=== PATIENT | male | born 1990 | race American Indian/Alaskan Native ===

== ENCOUNTER 2018-02-18 09:50 | Outpatient (CLI) | payer OTHER ==
[2018-02-18 10:31] LABS: Alanine Aminotransferase 47 units/L (7-56); Albumin 4.3 g/dL (3.9-5)
[2018-02-18 10:33] LABS: Bilirubin,Direct < 0.2 mg/dL (0-0.2)
== END 2018-02-18 09:51 | disposition home or self-care (01) ==
LOC: LAB 09:50
PROVIDERS: ATTEND Internal Medicine
DX: K30 Functional dyspepsia (principal); R03.0 Elevated blood-pressure reading, without diagnosis of hypertension; R52 Pain, unspecified
CPT/HCPCS: 36415; 80076